=== PATIENT | male | born 1960 | race Caucasian/White ===

== ENCOUNTER 2016-12-23 09:29 | Emergency (ER) | payer BC, OTHER ==
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
[2016-12-23] MEDS ORDERED: NS 0.9% 1000 ML* 1,000 ML IV ONE (10:07)
[2016-12-23 10:33] LABS: Hematocrit 43 % (42-52); Hemoglobin 14.3 g/dl (14.0-18.0); Mean Corpuscular HGB Conc 34 g/dl (31-36); Mean Corpuscular Hemoglobin 30 pg (27-31); Mean Corpuscular Volume 88 fL (80-94); Mean Platelet Volume 8 um3 (7.4-10.4); Red Blood Count 4.81 10^6/ul (4.0-5.4); Red Cell Distribution Width 13 % (10.5-15); White Blood Count 5.9 10^3/ul (3.5-10.8)
[2016-12-23 10:48] LABS: Albumin 4.4 g/dL (3.2-5.2); BUN/Creatinine Ratio 21.1 (8-20); Calcium 9.6 mg/dL (8.6-10.3); EGFR African American 85.8 (>60); EGFR Non-African American 66.7 (>60); Globulin 2.5 g/dL (2-4); Potassium 4.1 mmol/L (3.5-5.0); Total Bilirubin 0.9 mg/dL (0.2-1.0); Total Protein 6.9 g/dL (6.4-8.9)
[2016-12-23] MEDS ORDERED: Iohexol 300* (CONTRAST) 10 ML SDV IV ONE (11:03)
[2016-12-23 11:11] LABS: Urine Bilirubin Negative (Negative); Urine Glucose Negative (Negative); Urine Nitrite Negative (Negative)
--- NOTE | 2016-12-23 11:44 | RAD ---
INDICATION: Head injury. COMPARISON: There are no prior studies available for comparison. TECHNIQUE: Contiguous axial sections of the brain were obtained from the skull base to the vertex without contrast. FINDINGS: The ventricles, cisterns and sulci are within normal limits. No significant focal abnormality or mass effect is seen. There is no evidence for hemorrhage. No fracture is seen. There is mucosal thickening present on both sides within the ethmoid air cells. The visualized portion of the paranasal sinuses and mastoid air cells otherwise appear clear. IMPRESSION: NO EVIDENCE FOR ACUTE INTRACRANIAL ABNORMALITY.
--- NOTE | 2016-12-23 11:51 | RAD ---
INDICATION: Trauma. COMPARISON: There are no prior studies available for comparison. TECHNIQUE: Contiguous axial sections were obtained from the skull base through the T1 vertebra. Images were reconstructed in the sagittal and coronal planes. FINDINGS: There is straightening of the cervical spine with loss of the normal cervical lordosis. No prevertebral soft tissue swelling or fracture is seen. At the C4-C5 level there is mild posterior uncinate process spurring associated with a small central disc protrusion. No significant spinal canal narrowing is present. There is mild bilateral neural foraminal narrowing. At the C5-C6 level there is moderate posterior uncinate process spurring which causes mild to moderate spinal canal narrowing. There is moderate neural foraminal narrowing on the right side and mild neural foraminal narrowing on the left side. At the C6-C7 level there is moderate posterior uncinate process spurring which causes mild to moderate spinal canal narrowing. There is moderate bilateral neural foraminal narrowing. IMPRESSION: 1. STRAIGHTENING OF THE CERVICAL SPINE, NO EVIDENCE FOR FRACTURE OR SUBLUXATION. 2. MODERATE CERVICAL SPONDYLOSIS.
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
[2016-12-23 12:03] VITALS: BP 161/86
== END 2016-12-23 12:28 | disposition home or self-care (01) ==
LOC: ED 09:29
DX: S60.011A Contusion of right thumb without damage to nail, initial encounter (principal); S70.01XA Contusion of right hip, initial encounter; V43.52XA Car driver injured in collision with other type car in traffic accident, initial encounter; Y93.9 Activity, unspecified; Y92.9 Unspecified place or not applicable; Y99.9 Unspecified external cause status
CPT/HCPCS: 36415; 70450; 71260; 72125; 74177; 80053; 81003; 83605; 85025; 99283; Q9967